=== PATIENT | male | born 1995 | race Two or more races ===

== ENCOUNTER 2018-11-26 04:41 | Emergency (ER) | payer OTHER ==
[~2018-11-26] VITALS: Ht 172.7 cm; Wt 90.7 kg
--- NOTE | 2018-11-26 06:28 | Diagnostic Imaging Report ---
EXAMINATION: CXR 1 W - HOP INDICATION: Chest pain. COMPARISON: None FINDINGS: AP view TUBES and LINES: None. LUNGS: Lungs are well inflated. Lungs are clear. There is no evidence of pneumonia or pulmonary edema. PLEURA: No pleural effusion or pneumothorax. HEART AND MEDIASTINUM: The cardiomediastinal silhouette is unremarkable. BONES AND SOFT TISSUES: No acute osseous lesion. Soft tissues are unremarkable. UPPER ABDOMEN: No free air under the diaphragm. IMPRESSION: No acute thoracic abnormality. Signed by: DR. Eric Sharma MD on 11/26/2018 6:25 AM
== END 2018-11-26 05:45 | disposition home or self-care (01) ==
LOC: FSED 04:41
DX: R07.89 Other chest pain (principal); R06.02 Shortness of breath; R05 Cough; J02.0 Streptococcal pharyngitis
CPT/HCPCS: 71045; 80053; 84484; 85025; 93005; 99283